=== PATIENT | male | born 1975 | race Caucasian/White ===

== ENCOUNTER 2018-10-24 11:40 | Emergency (ER) | payer SELFPAY ==
[~2018-10-24] VITALS: Ht 190.5 cm; Wt 99.8 kg
[2018-10-24] MEDS ORDERED: NKM (11:48)
[2018-10-24] MEDS ORDERED: ZOLOFT25 MG ORAL (11:48)
--- NOTE | 2018-10-24 12:00 | NUR ---
ED Nurse Note: pt walked in to ER c/o anxiousness for a week. pt aao x4 and calm. skin clean and intact.
--- NOTE | 2018-10-24 12:02 | NUR ---
ED Nurse Note: social science instructor paged
--- NOTE | 2018-10-24 12:05 | Emergency Room Report ---
History of Present Illness General Chief Complaint: General Complaint Source: Patient (Toñito Suh) Present Illness HPI 43-year-old male patient presents the ER complaining of anxiousness and feelings of depression for the past month. Denies thoughts of hurting self or others. Reports history of anxiety, states that he was previously been treated with Zoloft however stopped taking medication approximately for 5 days ago because he felt like "it was not working". Reports that he stays with his parents however is "sort not living there". Denies fever, chest pain or shortness of breath. Denies thoughts of hurting himself or others. Denies of history of heart disease. Reports history of smoking cigarettes and marijuana. Denies other drug use. Denies other aggravating or relieving factors. (Toñito Suh) Allergies: Coded Allergies: No Known Allergies (Unverified , 10/24/18) Patient History Past Medical History: see triage record Reviewed Nursing Documentation: PMH: Agreed; PSxH: Agreed (Toñito Suh) Nursing Documentation-PMH Past Medical History: No History, Except For History Of Psychiatric Problem: Yes - anxiety, depression (Toñito Suh) Review of Systems All Other Systems: negative except mentioned in HPI (Toñito Suh) Physical Exam Vital Signs Date Time Temp Pulse Resp B/P (MAP) Pulse Ox O2 Delivery O2 Flow Rate FiO2 10/24/18 11:44 98.6 98 16 149/97 98 Room Air Sp02 EP Interpretation: reviewed, normal General Appearance: well appearing, no apparent distress, alert, GCS 15, non- toxic Head: normocephalic, atraumatic Eyes: bilateral eye normal inspection, bilateral eye PERRL ENT: hearing grossly normal, normal pharynx, no angioedema, normal voice, uvula midline, moist mucus membranes Neck: full range of motion Respiratory: lungs clear, normal breath sounds, no rhonchi, no respiratory distress, no accessory muscle use, no wheezing, speaking full sentences Cardiovascular #1: regular rate, rhythm, no edema Gastrointestinal: non tender, soft, no mass, non-distended, no guarding, no rebound Musculoskeletal: back normal, digits/nails normal, gait/station normal, normal range of motion, non-tender Neurologic: alert, oriented x3, responsive, motor strength/tone normal, sensory intact Psychiatric: mood/affect normal Skin: no rash (Toñito Suh) Medical Decision Making PA Attestation Dr. Velez is my supervising Physician whom patient management has been discussed with. (Toñito Suh) Diagnostic Impression: Primary Impression: Anxiety Additional Impression: Medical clearance for psychiatric admission ER Course Pt. presents to the ED c/o dizziness and depression for the past month. Ddx considered but are not limited to anxiety, depression, drug use, alcohol use , behavioral disorder. Vital signs: are WNL, pt. is afebrile Ordered labs, urine drug screen, serum alcohol. ER COURSE: Physical exam benign. Denies thoughts of hurting himself or others. Patient seen and evaluated by Janeth Christianson, client server programmer for [employer], therapist, recommend patient be seen and evaluated PET team and possible admission due to concerns of a possible having a breakdown. Begin psychiatric workup. CBC and CMP unremarkable, urine drug screen positive for marijuana, remainder negative, serum alcohol level 4, no elevation in acetaminophen or salicylate levels. UA equivocal however patient has no complaints of pain with urination or abdominal pain, low suspicion for UTI, does not require antibiotic treatment at this time. Awaiting PET team eval. Patient signed out to Dr. Hurley. - Please note that this Emergency Department Report was dictated using [employer] history professor technology software, occasionally this can lead to erroneous entry secondary to interpretation by the dictation equipment. [facility] Test 10/24/18 12:50 10/24/18 13:00 Urine Color Yellow Urine Appearance Clear Urine pH 5 (4.5-8.0) Urine Specific [place] 1.020 (1.005-1.035) Urine Protein Negative (NEGATIVE) Urine Glucose (UA) Negative (NEGATIVE) Urine Ketones 1+ (NEGATIVE) Urine Blood Negative (NEGATIVE) Urine Nitrite Negative (NEGATIVE) Urine Bilirubin Negative (NEGATIVE) Urine Urobilinogen Normal MG/DL (0.0-1.0) Urine Leukocyte Esterase 1+ (NEGATIVE) Urine RBC 0-2 /HPF (0 - 0) Urine WBC 2-4 /HPF (0 - 0) Urine Squamous Epithelial Cells None /LPF (NONE/OCC) Urine Amorphous Sediment Few /LPF (NONE) Urine Bacteria Moderate /HPF (NONE) Urine Mucus Moderate /LPF (NONE/OCC) Urine Opiates Screen Negative (NEGATIVE) Urine Barbiturates Screen Negative (NEGATIVE) Phencyclidine (PCP) Screen Negative (NEGATIVE) Urine Amphetamines Screen Negative (NEGATIVE) Urine Benzodiazepines Screen Negative (NEGATIVE) Urine Cocaine Screen Negative (NEGATIVE) Urine Marijuana (THC) Screen Positive (NEGATIVE) White Blood Count 8.0 K/UL (4.8-10.8) Red Blood Count 4.73 M/UL (4.70-6.10) Hemoglobin 15.3 G/DL (14.2-18.0) Hematocrit 43.6 % (42.0-52.0) Mean Corpuscular Volume 92 FL (80-99) Mean Corpuscular Hemoglobin 32.3 PG (27.0-31.0) Mean Corpuscular Hemoglobin Concent 35.1 G/DL (32.0-36.0) Red Cell Distribution Width 11.0 % (11.6-14.8) Platelet Count 245 K/UL (150-450) Mean Platelet Volume 6.0 FL (6.5-10.1) Neutrophils (%) (Auto) 71.0 % (45.0-75.0) Lymphocytes (%) (Auto) 21.9 % (20.0-45.0) Monocytes (%) (Auto) 5.6 % (1.0-10.0) Eosinophils (%) (Auto) 0.7 % (0.0-3.0) Basophils (%) (Auto) 0.8 % (0.0-2.0) Sodium Level 142 MMOL/L (136-145) Potassium Level 4.6 MMOL/L (3.5-5.1) Chloride Level 103 MMOL/L (98-107) Carbon Dioxide Level 28 MMOL/L (21-32) Anion Gap 11 mmol/L (5-15) Blood Urea Nitrogen 11 mg/dL (7-18) Creatinine 1.0 MG/DL (0.55-1.30) Estimat Glomerular Filtration Rate > 60 mL/min (>60) Glucose Level 97 MG/DL (74-106) Calcium Level 9.2 MG/DL (8.5-10.1) Total Bilirubin 0.3 MG/DL (0.2-1.0) Aspartate Amino Transf (AST/SGOT) 23 U/L (15-37) Alanine Aminotransferase (ALT/SGPT) 30 U/L (12-78) Alkaline Phosphatase 103 U/L (46-116) Total Protein 7.6 G/DL (6.4-8.2) Albumin 4.3 G/DL (3.4-5.0) Globulin 3.3 g/dL Albumin/Globulin Ratio 1.3 (1.0-2.7) Salicylates Level 1.9 ug/mL (2.8-20) Acetaminophen Level < 2 MCG/ML (10-30) Serum Alcohol 4 mg/dL (Toñito Suh) ER Course Please note that patient had been placed on a 5150 hold by psychiatric team At this time patient was accepted at a psychiatric facility and transferred for further inpatient care (Cheng Dsouza DO) Last Vital Signs Date Time Temp Pulse Resp B/P (MAP) Pulse Ox O2 Delivery O2 Flow Rate FiO2 10/24/18 11:44 98.6 98 16 149/97 98 Room Air (Toñito Suh) Status: unchanged (Cheng Dsouza DO) Disposition: XFER TO PSYCH HOSP/UNIT Condition: Improved Toñito Suh Oct 24, 2018 12:05 Cheng Dsouza DO Oct 25, 2018 10:35
[2018-10-24 12:08] VITALS: BP 149/97
[2018-10-24 13:06] LABS: BASOPHILS % (AUTO) 0.8 % (0.0-2.0); EOSINOPHILS % (AUTO) 0.7 % (0.0-3.0); HEMATOCRIT 43.6 % (42.0-52.0); HEMOGLOBIN 15.3 G/DL (14.2-18.0); LYMPHOCYTES % (AUTO) 21.9 % (20.0-45.0); MEAN CORPUSCULAR VOLUME 92 FL (80-99); MONOCYTES % (AUTO) 5.6 % (1.0-10.0); PLATELET COUNT 245 K/UL (150-450); RED BLOOD COUNT 4.73 M/UL (4.70-6.10)
[2018-10-24 13:23] LABS: ANION GAP 11 mmol/L (5-15); BLOOD UREA NITROGEN 11 mg/dL (7-18); CALCIUM 9.2 MG/DL (8.5-10.1); CARBON DIOXIDE 28 MMOL/L (21-32); CHLORIDE 103 MMOL/L (98-107); POTASSIUM 4.6 MMOL/L (3.5-5.1); SODIUM 142 MMOL/L (136-145)
[2018-10-24 13:26] LABS: ALANINE AMINOTRANSFERASE 30 U/L (12-78); ALBUMIN 4.3 G/DL (3.4-5.0); ALBUMIN/GLOBULIN RATIO 1.3 (1.0-2.7); ALKALINE PHOSPHATASE 103 U/L (46-116); ASPARTATE AMINO TRANSFERASE 23 U/L (15-37); BILIRUBIN,TOTAL 0.3 MG/DL (0.2-1.0)
--- NOTE | 2018-10-24 14:26 | NUR ---
ED Nurse Note: pt started getting anxious and raised voice to staff. removed IV for safety.
[2018-10-24 14:30] VITALS: BP 135/80
--- NOTE | 2018-10-24 14:55 | NUR ---
Social Work This Sw made an attempt to speak with patient (due to homelessness and psychiatric issues). Patient refusing to speak with this SW x2, appears to show increased anxiety; according to ED associate account executiveTammi, pending PMRT to come and evaluate for hold for possible inpatient Psychiatric placement.
--- NOTE | 2018-10-24 16:17 | NUR ---
ED Nurse Note: called lab to request to run Urinalysis Miscroscopy.
[2018-10-24 16:30] VITALS: BP 139/86
[2018-10-24 16:32] LABS: APPEARANCE,URINE CLEAR; BILIRUBIN, URINE NEGATIVE (NEGATIVE); GLUCOSE, URINE (UA) NEGATIVE (NEGATIVE); KETONES,URINE 1+ (NEGATIVE); LEUKOCYTE ESTERASE ,URINE 1+ (NEGATIVE); NITRITE,URINE NEGATIVE (NEGATIVE); PH,URINE 5 (4.5-8.0); PROTEIN,URINE NEGATIVE (NEGATIVE); UROBILINOGEN,URINE NORMAL MG/DL (0.0-1.0)
[2018-10-24 16:33] LABS: COLOR,URINE YELLOW
[2018-10-24 18:30] VITALS: BP 144/80
--- NOTE | 2018-10-24 19:55 | NUR ---
HAND-OFF: Report given to ETHEL Ames.
--- NOTE | 2018-10-24 19:55 | NUR ---
ED Nurse Note: recieve pt on gurney, asleep. respiration equal and not in acute distress. waiting for the evaluation of the pet team. will continue to monitor.
--- NOTE | 2018-10-24 22:37 | NUR ---
ED Nurse Note: pt went to restroom and asked for water and pt able to tolerate well. pt is calm and talks with normal tone of voice. will continue to monitor.
[2018-10-24 23:00] VITALS: BP 132/80
--- NOTE | 2018-10-24 23:34 | NUR ---
ED Nurse Note: pet team on bedside talking with the pt. pt able to answer questions. will continue to monitor.
--- NOTE | 2018-10-25 03:00 | NUR ---
ED Nurse Note: pt was put on 5150 hold by the pmrt. pt able to cooperate, all belongings was put on locker 1. pt went to restroom and asked water and pt able to tolerate well. will continue to monitor.
--- NOTE | 2018-10-25 07:08 | NUR ---
HAND-OFF: Report given to ETHEL Vivas.
[2018-10-25 07:14] VITALS: BP 106/64
--- NOTE | 2018-10-25 07:25 | NUR ---
ED Nurse Note: RECEIVED PT FROM ETHEL SANCHEZ. A/OX4. PT CAME IN TO ER DUE TO ANXIETY X 1WEEK. DENIES SI/HI AT THIS TIME. PER ETHEL SANCHEZ, PMRT ARRIVED AROUND 0300 THIS MORNING AND PLACED HIM ON HOLD. ALL BELONGINGS IS PLACED IN LOCKER 1 BY ETHEL SANCHEZ. WILL CONTINUE TO MONITOR.
--- NOTE | 2018-10-25 09:36 | NUR ---
HAND-OFF: Report given to ETHEL Mendoza. Waiting for placement. Pt remain stable.
[2018-10-25 10:02] VITALS: BP 130/72
--- NOTE | 2018-10-25 10:03 | NUR ---
ED Nurse Note:pt. was questioning why he can't leave ER and was explained about hold process by charge nurse
[2018-10-25 10:51] VITALS: BP 130/72
--- NOTE | 2018-10-25 10:54 | NUR ---
ED Nurse Note:called report to [facility], pt. was picked up by ambulance for transfer, he left with all of his personal belongings
== END 2018-10-25 10:55 ==
LOC: EMR 12:48
DX: F41.9 Anxiety disorder, unspecified (principal); F32.9 Major depressive disorder, single episode, unspecified
CPT/HCPCS: 36415; 80053; 80307; 81003; 85025; 87086; 99285; G0480; 80329